=== PATIENT | female | born 1965 | race African-American/Black ===

== ENCOUNTER → 2018-07-23 | Outpatient (CLI) | payer OTHER ==
--- NOTE | 2018-07-23 23:15 | XCELERA REPORT ---
[address] [id number] Transthoracic Echocardiogram Report Name: MICHA RAIN Age: 53 yrs Gender: Female : 1965 Patient Status: Preadmit Patient Location: Study Date: 07/23/2018 03:01 PM Height: 68 in Weight: 165 lb BSA: 1.9 m2 Procedure: A two-dimensional transthoracic echocardiogram with color flow Doppler was performed. Images were not obtained from all of the standard acoustic windows due to the limited scope of the study. Reason For Study: CHEST PAIN History: CHEST PAIN. Ordering Physician: CHE HOLT Performed By: Mona Villarreal Interpretation Summary The left ventricle is normal in size. There is normal left ventricular wall thickness. No True apical 2 chamber views obtained.Hence cannot comment on the apical anterior , the basal anterior, the basal inferior and apical inferior paige.The mid anterior , the mid inferior and the rest of the LV paige contract normally. .Normal LVEF is normal and is greater than 65% in the limited views. Doppler measurements suggest impaired left ventricular relaxation, which is associated with grade I/IV or mild diastolic dysfunction There is no thrombus. No ASD , VSD , or PFO seen. The right ventricle is normal in size and function. The right atrium is normal. The left atrial size is normal. There is no evidence of mitral valve prolapse. There is no vegetation seen on the mitral valve. There is no mitral valve stenosis. There is a trace amount of mitral regurgitation There is no aortic valve stenosis There is no LVOT obstruction. No aortic regurgitation is present. There is no tricuspid stenosis. There is a mild amount of tricuspid regurgitation There is mild pulmonary hypertension by echo RVSP is 33 to 38 mm of Hg , with RA mean of 5 to 10. There is no pulmonic valvular stenosis. There is a mild amount of pulmonic regurgitation The aortic root is normal size. The inferior vena cava appeared normal and decreased > 50% with respiration (RAP 5-10 mmHg) There is no pericardial effusion. MMode/2D Measurements & Calculations RVDd: 2.7 cm LVIDd: 5.2 cm FS: 35.5 % Ao root diam: 2.4 cm IVSd: 0.75 cm LVIDs: 3.4 cm EDV(Teich): 129.2 ml Ao root area: 4.4 cm2 LVPWd: 0.89 cm ESV(Teich): 45.8 ml EF(Teich): 64.6 % Doppler Measurements & Calculations MV E max lauren: MV dec slope: Ao V2 max: LV V1 max P.3 cm/sec 404.3 cm/sec2 183.3 cm/sec 6.6 mmHg MV A max lauren: MV dec time: 0.19 secAo max PG: LV V1 max: 93.2 cm/sec 13.4 mmHg 128.5 cm/sec MV E/A: 0.81 LV dP/dt: 827.6 mmHg/s PA V2 max: PI end-d lauren: TR max lauren: 140.2 cm/sec 64.7 cm/sec 262.4 cm/sec PA max P.9 mmHg TR max P.6 mmHg Left Ventricle The left ventricle is normal in size. There is normal left ventricular wall thickness. No True apical 2 chamber views obtained.Hence cannot comment on the apical anterior , the basal anterior, the basal inferior and apical inferior paige.The mid anterior , the mid inferior and the rest of the LV paige contract normally. .Normal LVEF is normal and is greater than 65% in the limited views. Doppler measurements suggest impaired left ventricular relaxation, which is associated with grade I/IV or mild diastolic dysfunction. There is no thrombus. No ASD , VSD , or PFO seen. Right Ventricle The right ventricle is normal in size and function. Atria The right atrium is normal. The left atrial size is normal. Mitral Valve There is no evidence of mitral valve prolapse. There is no vegetation seen on the mitral valve. There is no mitral valve stenosis. There is a trace amount of mitral regurgitation. Aortic Valve There is no aortic valvular vegetation. There is no aortic valve stenosis. There is no LVOT obstruction. No aortic regurgitation is present. Tricuspid Valve There is no tricuspid stenosis. There is a mild amount of tricuspid regurgitation. There is mild pulmonary hypertension by echo. RVSP is 33 to 38 mm of Hg , with RA mean of 5 to 10. Pulmonic Valve There is no pulmonic valvular stenosis. There is a mild amount of pulmonic regurgitation. Great Vessels The aortic root is normal size. The inferior vena cava appeared normal and decreased > 50% with respiration (RAP 5-10 mmHg). Effusions There is no pericardial effusion. : CHE HOLT > Che Holt
== END ==
LOC: SP 14:54
PROVIDERS: ATTEND Specialist
DX: R07.9 Chest pain, unspecified (principal)
CPT/HCPCS: 93306